=== PATIENT | female | born 1955 | race Caucasian/White ===

== ENCOUNTER 2019-09-28 20:35 | Emergency (ER) | payer OTHER, SELFPAY ==
[2019-09-28 20:38] VITALS: BP 168/100; PULSE 73; RESP 16; TEMP 36.9; O2SAT 95
[2019-09-28] MEDS: FAMOTIDINE 20 MG/2 ML VIAL IV PUSH (20:47)
[2019-09-28 20:48] VITALS: BP 92/66; PULSE 78; RESP 16; O2SAT 94
[2019-09-28] MEDS: SODIUM CHLORIDE 0.9% IV 1,000 ML 999 ML IV CONT (20:55)
[2019-09-28 21:00] VITALS: BP 102/63; PULSE 774; RESP 16; O2SAT 94
[2019-09-28 21:46] VITALS: BP 133/73; PULSE 78; RESP 17; O2SAT 95
[2019-09-28] MEDS: ONDANSETRON INJ 4 MG/2 ML VIAL IV PUSH (21:50)
--- NOTE | 2019-09-28 22:18 | ED.ALLEREA ---
HPI - Allergic Reaction General Chief complaint: Allergic Reaction Stated complaint: allergic reaction Time Seen by Provider: 09/28/19 20:38 History of Present Illness HPI narrative: Patient is a 63-year-old woman who presents ER with concerns for allergic reaction. Patient ate some swordfish this evening. 30 minutes later she began to feel nauseated. She then reports that she started feeling like maybe her throat was swelling and she has terrible itching and burning to her hands. Slight redness to her skin. No difficulty breathing or swallowing. Her granddaughter is also come to the ER with similar symptoms. No aggravating or alleviating factors that she has noted. Related Data Home Medications Medication Instructions Recorded Confirmed lisinopril 20 mg DAILY 05/31/19 05/31/19 sertraline 25 mg PO DAILY 05/31/19 05/31/19 Allergies Allergy/AdvReac Type Severity Reaction Status Date / Time Penicillins Allergy Severe rash Verified 12/18/14 14:52 Sulfa (Sulfonamide Allergy Intermediate vomiting Verified 05/31/19 11:56 Antibiotics) Review of Systems Review of Systems: All systems reviewed & are unremarkable except as noted in HPI and below Constitutional: Constitutional: Denies chills, Denies fever(s) and Denies weakness ENT: Denies dizziness, Denies nasal congestion and Reports sore throat Cardiovascular: Cardiovascular: Denies chest pain and Denies radiating jaw, neck or arm pain Respiratory: Respiratory: Denies cough, Denies dyspnea and Denies wheezing Gastrointestinal: Gastrointestinal: Denies abdominal pain, Reports nausea and Denies vomiting PMFSH Past Medical History Medical History (Updated 09/28/19 @ 22:23 by Dimitry Marte MD) Depression Hypertension Surgical History Surgical History (Updated 09/28/19 @ 22:20 by Dimitry Marte MD) No pertinent past surgical history Social History Social History (Updated 09/28/19 @ 22:20 by Dimitry Marte MD) Smoking status: Never smoker Gender identity (if verbalized by the patient): Female Exam Narrative: Exam Narrative: GENERAL: Anxious-appearing, well-nourished, and in no acute distress. HEAD: Normocephalic, atraumatic. ENT: Mucous membranes moist. Edema to the posterior oropharynx with uvula midline and no tonsillar hypertrophy. Lips normal. NECK: Supple. CHEST: Clear to auscultation. No respiratory distress. HEART: Regular rate and rhythm. Normal peripheral pulses. EXTREMITIES: Normal range of motion. No edema. SKIN: Warm, dry, flushed and red without urticaria. NEURO: Alert and oriented x3. Course Course Emergency Course: Suspect scombroid poisoning given the fact that another family member who ate the same could have fishes in the ER ill. Patient received IV Benadryl and famotidine with total resolution of symptoms. Discharge home. Patient had brief vasovagal episode after having her second IV started. Received IV fluid. Vital Signs Vital signs: Vital Signs Temperature 98.4 F 09/28/19 20:38 Pulse Rate 73 09/28/19 20:38 Respiratory Rate 16 09/28/19 20:38 Blood Pressure 168/100 H 09/28/19 20:38 Pulse Oximetry 95 09/28/19 20:38 Temperature 98.4 F 09/28/19 20:38 Pulse Rate 78 09/28/19 21:46 Respiratory Rate 17 09/28/19 21:46 Blood Pressure 133/73 09/28/19 21:46 Pulse Oximetry 95 09/28/19 21:46 Discharge Plan Discharge Clinical Impression: Scombroid fish poisoning Patient Disposition: Home, Self-Care Condition: Stable Instructions: Food Poisoning (ED) Additional Instructions: Return the ER if he cannot breathe, you cannot swallow, you cannot keep down food or water, you have additional concerns. Prescriptions: No Action lisinopril 20 mg tablet 20 mg DAILY RF: 0 sertraline 25 mg Tablet 25 mg PO DAILY RF: 0 azithromycin 200 mg/5 mL suspension for reconstitution See Rx Instructions .ROUTE .COMPLEX Qty: 38 RF: 0 Follow-up/Referrals: ROOM
[2019-09-28 22:53] VITALS: BP 141/77; PULSE 74; RESP 20; O2SAT 99
== END 2019-09-28 22:54 | disposition home or self-care (01) ==
PROVIDERS: Emergency Provider Emergency Medicine
DX: T61.11XA Scombroid fish poisoning, accidental (unintentional), initial encounter (principal); F32.9 Major depressive disorder, single episode, unspecified; I10 Essential (primary) hypertension
CPT/HCPCS: 96361; 96374; 96375; 99284; J1200; J2405; J7030

== ENCOUNTER 2019-10-10 14:26 | Emergency (ER) | payer OTHER, SELFPAY ==
[2019-10-10 14:30] VITALS: BP 165/91; PULSE 93; RESP 19; TEMP 36.4; O2SAT 99
--- NOTE | 2019-10-10 15:10 | ED.GENADULT ---
HPI - General Adult General Chief complaint: Unspecified Stated complaint: swollen lymph node on neck Time Seen by Provider: 10/10/19 14:32 History of Present Illness HPI narrative: Swelling and fullness in the neck for the past hour. Started while eating eggs. Swallowing is mildly uncomfortable. No lip or tongue swelling. No SOB. She tried benadryl without significant improvement. She has had 1 previous episode of serious allergic reaction with unknown cause. Related Data Home Medications Medication Instructions Recorded Confirmed lisinopril 20 mg DAILY 05/31/19 05/31/19 sertraline 25 mg PO DAILY 05/31/19 05/31/19 Allergies Allergy/AdvReac Type Severity Reaction Status Date / Time Penicillins Allergy Severe rash Verified 10/10/19 14:32 Sulfa (Sulfonamide Allergy Intermediate vomiting Verified 10/10/19 14:32 Antibiotics) Review of Systems Review of Systems: All systems reviewed & are unremarkable except as noted in HPI and below Constitutional: Constitutional: Denies chills and Denies fever(s) ENT: Reports dysphagia, Denies dizziness and Denies sore throat Cardiovascular: Cardiovascular: Denies chest pain Respiratory: Respiratory: Denies dyspnea Gastrointestinal: Gastrointestinal: Denies abdominal pain and Denies nausea Neurologic: Denies dizziness and Denies weakness PMFSH Past Medical History Medical History Depression Hypertension Surgical History Surgical History No pertinent past surgical history Social History Social History Smoking status: Never smoker Gender identity (if verbalized by the patient): Female Exam Const: General: healthy appearing, no acute distress and alert Orientation/consciousness: patient oriented x3 HENMT: Other: No stridor. No swelling of lips, tongue or palate. Eyes: Pupils: Equal, round and reactive pupils present Neck: Other: Mild fullness to sublingual area. No stridor. Resp: Effort & Inspection: normal respiratory effort Auscultation: clear to auscultation bilaterally Cardio: Rate: regular rate Rhythm: regular rhythm GI: GI Palp: Yes Soft to palpation and No Tenderness to palpation present (GI) Skin: General skin exam: normal color Neuro: General: patient oriented x3, moves all extremities and CN's II-XI intact bilaterally Cranial nerves: Yes Nystagmus not present Speech: normal speech Extrem: General: normal to inspection Course Vital Signs Vital signs: Vital Signs Temperature 36.4 C 10/10/19 14:30 Pulse Rate 93 10/10/19 14:30 Respiratory Rate 19 10/10/19 14:30 Blood Pressure 165/91 H 10/10/19 14:30 Pulse Oximetry 99 10/10/19 14:30 Temperature 36.4 C 10/10/19 14:30 Pulse Rate 78 10/10/19 15:36 Respiratory Rate 12 10/10/19 15:36 Blood Pressure 162/65 H 10/10/19 15:36 Pulse Oximetry 99 10/10/19 15:36 Medical Decision Making MDM Narrative Medical decision making narrative: She is having a mild to moderate allergic reaction without significnat progression since onset. She declined treatment with epi. I believe that she is a good candidate for outpatient treatment. Discussed the need for allergy testing to help prevent future reactions. Medical Records Medical records reviewed: Yes I reviewed the patient's medical records. Vital Signs Vital Signs: Vital Signs Temperature 36.4 C 10/10/19 14:30 Pulse Rate 93 10/10/19 14:30 Respiratory Rate 19 10/10/19 14:30 Blood Pressure 165/91 H 10/10/19 14:30 Pulse Oximetry 99 10/10/19 14:30 Temperature 36.4 C 10/10/19 14:30 Pulse Rate 78 10/10/19 15:36 Respiratory Rate 12 10/10/19 15:36 Blood Pressure 162/65 H 10/10/19 15:36 Pulse Oximetry 99 10/10/19 15:36 Lab Data Lab results reviewed: Yes I reviewed the patient's lab results. Discharge Plan Di
[2019-10-10 15:36] VITALS: BP 162/65; PULSE 78; RESP 12; O2SAT 99
== END 2019-10-10 15:40 | disposition home or self-care (01) ==
PROVIDERS: Emergency Provider Emergency Medicine
DX: T78.40XA Allergy, unspecified, initial encounter (principal); F32.9 Major depressive disorder, single episode, unspecified; I10 Essential (primary) hypertension
CPT/HCPCS: 96372; 99283; A9270; J1100

== ENCOUNTER 2022-05-15 17:53 | Emergency (ER) | payer MEDICARE, SELFPAY ==
[2022-05-15 18:49] VITALS: BP 142/77; PULSE 84; RESP 16; TEMP 36.6; O2SAT 97
--- NOTE | 2022-05-15 19:07 | ED.URI ---
HPI - URI/Sore Throat General Chief Complaint: Upper Respiratory Infection Stated Complaint: bilateral ear pain,sorethroat Time Seen by Provider: 05/15/22 19:00 Source: patient Mode of arrival: ambulatory Limitations: no limitations History of Present Illness HPI Narrative: Maggy is a 66-year-old female patient presenting to the clinic today with complaints of bilateral ear pain, sinus pressure, sore throat, nasal congestion, green nasal drainage, feeling as though her chest is rattling. States that this has been going on however since . MD elicited complaint: cough, sore throat, rhinorrhea, nasal congestion and other (Chest congestion) Related Data Home Medications Medication Instructions Recorded Confirmed lisinopril 20 mg tablet 20 mg DAILY 05/31/19 05/15/22 sertraline 25 mg tablet 25 mg PO DAILY 05/31/19 05/15/22 levothyroxine 25 mcg tablet 25 mcg DAILY 05/15/22 05/15/22 rosuvastatin 10 mg tablet 10 mg DAILY 05/15/22 05/15/22 Allergies Allergy/AdvReac Type Severity Reaction Status Date / Time Penicillins Allergy Severe rash Verified 05/15/22 18:53 Sulfa (Sulfonamide Allergy Intermediate vomiting Verified 05/15/22 18:53 Antibiotics) Review of Systems Review of Systems: Pertinent positives per HPI. Patient denies any rash, visual changes, dizziness, shortness of breath, chest pain, palpitations, nausea, vomiting, diarrhea, constipation, abdominal pain, or any urinary issues. PMFSH Past Medical History Medical History (Updated 05/15/22 @ 19:08 by Trey Diaz APRN) Depression Hypertension Surgical History Surgical History No pertinent past surgical history Social History Social History Smoking status: Never smoker Gender identity (if verbalized by the patient): Female Comments At the time of my signature, I reviewed and agree with the nursing past medical, surgical, social, and family history. There is no relevant family history pertinent to the patient complaint. Exam Narrative: General: Well-developed, well nourished, in no apparent distress Head: Normocephalic, atraumatic Eyes: Pupils equally round and reactive to light bilaterally, EOM intact, sclera and conjunctive clear, no discharge, lids normal Ears: TMs intact and clear, ear canals clear, no drainage, grossly hearing normal. Nose: Nares patent, no discharge, no inflammation, no sinus tenderness. Mouth: Oral pharynx without lesions or masses, good dentition, MMM. Neck: Supple, trachea midline, no enlargement of anterior or posterior cervical nodes, no thyroid masses or goiter palpable. Cardio: Regular rate and rhythm, s1 and s2 normal, no murmur appreciated. Resp: Clear to auscultation bilaterally, no rhonchi, rales, wheezing or rubs Course Course Emergency Course: Portions of this record may have been created with voice recognition software. Level of Care: Express Care Visit Vital Signs Vital signs: Vital Signs Temperature 36.6 C 05/15/22 18:49 Pulse Rate 84 05/15/22 18:49 Respiratory Rate 16 05/15/22 18:49 Blood Pressure 142/77 H 05/15/22 18:49 Pulse Oximetry 97 05/15/22 18:49 Oxygen Delivery Room Air 05/15/22 18:49 Temperature 36.6 C 05/15/22 18:49 Pulse Rate 84 05/15/22 18:49 Respiratory Rate 16 05/15/22 18:49 Blood Pressure 142/77 H 05/15/22 18:49 Pulse Oximetry 97 05/15/22 18:49 Oxygen Delivery Room Air 05/15/22 18:49 Vital signs reviewed MDM - URI/Sore Throat MDM Narrative Medical decision making narrative: At the time of visit patient is resting comfortably on the exam table. I suspect the patient has sinusitis with bronchitis. Prescription for azithromycin and prednisone was sent to the pharmacy. Supportive measures were discussed with the patient she voiced understanding of discharge instructions and agrees to treatment plan. Diff
== END 2022-05-15 19:15 | disposition home or self-care (01) ==
PROVIDERS: Emergency Provider Nurse Practitioner Family; PCP Student in an Organized Health Care Education/Training Program
DX: J40 Bronchitis, not specified as acute or chronic (principal); J01.00 Acute maxillary sinusitis, unspecified; I10 Essential (primary) hypertension; F32.A Depression, unspecified
CPT/HCPCS: 99213; G0463

== ENCOUNTER → 2023-03-20 12:32 | Outpatient (CLI) | payer MEDICARE, SELFPAY ==
--- NOTE | ~2023-03-20 | MM_ITS ---
EXAMINATION: MM screening suyapa BI w pallavi HISTORY: Screening TECHNIQUE: Craniocaudal and mediolateral oblique 3-D tomosynthesis images were obtained and synthetic 2-D images were generated. CAD analysis was submitted and interpreted. COMPARISON: 08/23/2018 BREAST PARENCHYMAL COMPOSITION: There are scattered areas of fibroglandular density. FINDINGS: There is no evidence of suspicious mass, calcification, or architectural distortion to sugg est malignancy in either breast. There has been no suspicious interval change. IMPRESSION: 1. No mammographic evidence of malignancy. 2. Recommend routine screening mammography in one year. BI-RADS Category 1: Negative Reviewed, dictated and finalized at location A. [facility] [employer]
== END ==
PROVIDERS: PCP Student in an Organized Health Care Education/Training Program; Visit Provider Student in an Organized Health Care Education/Training Program
DX: Z12.31 Encounter for screening mammogram for malignant neoplasm of breast (principal)
CPT/HCPCS: 77063; 77067

== ENCOUNTER 2023-08-01 10:45 | Outpatient (RCR) | payer MEDICARE, SELFPAY ==
[2023-08-01 10:57] VITALS: BMI 26.9
== END 2023-10-15 09:37 | disposition home or self-care (01) ==
LOC: ANHDMC 10:45
PROVIDERS: PCP Student in an Organized Health Care Education/Training Program; Visit Provider Student in an Organized Health Care Education/Training Program
DX: E11.65 Type 2 diabetes mellitus with hyperglycemia (principal); Z71.89 Other specified counseling; Z71.3 Dietary counseling and surveillance
CPT/HCPCS: 97802; G0108